=== PATIENT | male | born 1980 | race Two or more races ===

== ENCOUNTER 2021-03-09 11:26 | Emergency (ER) | payer SELFPAY ==
[~2021-03-09] VITALS: Ht 160 cm; Wt 61.6 kg
[2021-03-09 12:10] VITALS: BP 118/71
[2021-03-09] MEDS ORDERED: CYCL10TA2 PO (12:45)
[2021-03-09] MEDS ORDERED: IBUP-1007 PO (12:45)
[2021-03-09] MEDS ORDERED: TRAM-48 PO (12:45)
--- NOTE | 2021-03-09 12:47 | PHYS DOC ---
Past Medical History Past Surgical History: No Surgical History (DAVID RANDOLPH APRN) Smoking Status: Never Smoker Alcohol Use: None (DAVID RANDOLPH APRN) General Adult EDM: Chief Complaint: BACK PAIN OR INJURY HPI: HPI: Patient is a 40 male presents to the emergency department reporting ongoing back discomfort from a fall off a roof from November [id number]. Patient reports he was seen at [facility], was given pain medications and follow-up for outpatient care, patient reports he is out of pain medications and his follow-up appointments are too far for him to drive. Patient denies numbness or tingling to his extremities. Patient denies any loss of bowel or bladder, denies shortness of breath cough chest pain or congestion. Denies fever or chills. Denies receiving the COVID-19 vaccination. Reports his last tetanus immunization was greater than 10 years ago. Patient reports he took a Tylenol tablet yesterday for pain, reports his pain at a 2 out of 10 currently, reports it as high as a 4 out of 10. Patient states he would like to have a closer place to see a physician and to have a prescription for ongoing pain medications. Patient denies any other other physical concerns or physical complaints. Patient reports he is currently not working. (DAVID RANDOLPH APRN) Review of Systems: Review of Systems: 14 body systems of review of systems have been reviewed. See HPI for pertinent positives and negative responses, otherwise all other systems are negative, nonpertinent or noncontributory. Constitutional: Negative except as outlined in HPI above. Skin: Negative except as outlined in HPI above. Eyes: Negative except as outlined in HPI above. HENT: Negative except as outlined in HPI above. Respiratory: Negative except as outlined in HPI above. Cardiovascular: Negative except as outlined in HPI above. GI: Negative except as outlined in HPI above. : Negative except as outlined in HPI above. Musculoskeletal: Negative except as outlined in HPI above. Integument: Negative except as outlined in HPI above. Neurologic: Negative except as outlined in HPI above. Endocrine: Negative except as outlined in HPI above. Lymphatic: Negative except as outlined in HPI above. Psychiatric: Negative except as outlined in HPI above. (DAVID RANDOLPH APRN) Heart Score: C/O Chest Pain: No Risk Factors: Risk Factors: DM, Current or recent (<one month) smoker, HTN, HLP, family history of CAD, obesity. Risk Scores: Score 0 - 3: 2.5% MACE over next 6 weeks - Discharge Home Score 4 - 6: 20.3% MACE over next 6 weeks - Admit for Clinical Observation Score 7 - 10: 72.7% MACE over next 6 weeks - Early Invasive Strategies (DAVID RANDOLPH APRN) Allergies: Allergies: Allergies Coded Allergies Type Severity Reaction Last Updated Verified No Known Drug Allergies 03/09/21 No (DAVID RANDOLPH APRN) Physical Exam: PE: Constitutional: Well developed, well nourished, no acute distress, non-toxic appearance. 40-year-old male in no apparent distress. HENT: Normocephalic, atraumatic. Eyes: Conjunctiva normal, no discharge. Neck: Normal range of motion, no stridor. Cardiovascular: No cyanosis appreciated, distal cap refill less than 2 seconds. Lungs & Thorax: Patient is in no respiratory distress, no audible adventitious lung sounds appreciated. Abdomen: Nontender, no abnormalities noted. Skin: Warm, dry, no erythema, no rash. Back: No deformities appreciated, no crepitus appreciated, no bruising or skin discoloration of the back appreciated, pain to palpation along thoracic spine musculoskeletal structures. Full AROM/PROM of vertebral spinal column. Extremities: No tenderness, no cyanosis, no clubbing, ROM intact, no edema. [] Neurologic: Alert and oriented X 3, normal motor function, normal sensory function, no focal deficits noted. Psychologic: Affect normal, judgement normal, mood normal. (DAVID RANDOLPH APRN) Current Patient Data: Vital Signs: Vital Signs Date Time Temp Pulse Resp B/P (MAP) Pulse Ox O2 Delivery O2 Flow Rate FiO2 03/09/21 12:10 98.6 54 16 118/71 99 98.6 (DAVID RANDOLPH APRN) EKG: EKG: [] (DAVID RANDOLPH APRN) Radiology/Procedures: Radiology/Procedures: [] (DAVID RANDOLPH APRN) Course & Med Decision Making: Course & Med Decision Making Pertinent Labs and Imaging studies reviewed. (See chart for details) 40-year-old male, vital signs reviewed, presents to the emergency department complaining of ongoing back pain from an original injury around November 11, 2020. Physical examination consistent with musculoskeletal back pain. No imaging indicated. Will give pain medication in the ED today, will bring tetanus immunization up-to-date with Adacel Tdap, will provide follow-up care for ongoing pain management. Patient is amenable to ED planning and ED discharge planning. Patient is Slovak-speaking, used house foreign language interpreter service for HPI, physical examination, and discharge planning with patient, passenger relations representative #[id number]. Discussed with the patient all findings and diagnostic testing as well as the need to follow-up with their primary care provider for further evaluation and treatment or return to the ED if any new or worsening symptoms. Strict return precautions were also discussed at length, the patient voiced understanding and agreement with the discharge planning. The patient was nontoxic in appearance, in no apparent distress, and hemodynamically stable at the time of disposition. (DAVID RANDOLPH APRN) Course & Med Decision Making I have reviewed and agree with all pertinent clinical information above inc luding history, exam, and recommendations. Ivan Saleh DO (IVAN SALEH DO) Vijay Disclaimer: Vijay Disclaimer: This electronic medical record was generated, in whole or in part, using a voice recognition dictation system. (DAVID RANDOLPH APRN) Departure Departure Impression: Primary Impression: Back pain Qualified Codes: M54.6 - Pain in thoracic spine; G89.29 - Other chronic pain Additional Impression: Need for DTaP vaccination Disposition: HOME / SELF CARE / HOMELESS Condition: GOOD Referrals: NO PCP (PCP) Patient Instructions: Back Pain, Adult Additional Instructions: You were seen today in the emergency department for ongoing mid back pain since your original injury in October of this year. You were treated today with pain medication in the ED. You are also given a tetanus immunization as you indicated your last tetanus immunization was greater than 5 years ago. We are providing you with area clinics and primary care providers that you may choose to see for ongoing pain management of this back pain. Please follow-up this week with a primary care physician to establish care and ongoing pain management. I am prescribing you pain medication please take as directed. Thank you for visiting our Emergency Department. It was a pleasure taking care of you today in the emergency department and we appreciate you trusting us with your care. If any additional problems come up don't hesitate to return to visit us. Please follow up with your primary care provider so they can plan additional care if needed and know about the problem that you had. If symptoms worsen come back to the Emergency Department. Any concerning symptoms that start such as chest pain, shortness of air, weakness or numbness on one side of the body, running high fevers or any other concerning symptoms return to the ER. Hoy lo atendieron en el departamento de emergencias por un dolor lumbar continuo desde calderón lesin original en tyrel de zack ao. Hoy te trataron con analgsicos en el servicio de urgencias. Tambin se le administra joanne vacuna contra el ttanos, ya que indic que calderón ltima vacuna contra el ttanos fue mayor que hace 5 aos. Le proporcionamos clnicas del aiden y proveedores de atencin primaria que puede elegir buzz para el manejo continuo del dolor de zack dolor de espalda. Paul un seguimiento esta semana con un mdico de atencin primaria para establecer la atencin y el manejo continuo del dolor. Le estoy recetando analgsicos, por favor tmelos segn las indicaciones. John por visitar nuestro Departamento de Emergencias. Fue un placer atenderlo hoy en el departamento de emergencias y le agradecemos que nos haya confiado calderón atencin. Si surge algn problema adicional, no dude en volver a visitarnos. Paul un seguimiento con calderón proveedor de atencin primaria para que puedan planificar atencin adicional si es necesario y conocer el problema que tuvo. Si los s ntomas empeoran, regrese al Departamento de Emergencias. Cualquier sntoma preocupante que comience, behzad dolor en el pecho, falta de aire, debilidad o entumecimiento en un lado del cuerpo, fiebre uzma o cualquier otro sntoma preocupante, regresa a la soumya de emergencias. Scripts Cyclobenzaprine Hcl (CYCLOBENZAPRINE HCL) 10 Mg Tablet 1 TAB PO TID for muscle cramping, #15 TAB 0 Refills Prov: DAVID RANDOLPH [employer] 03/09/21 Tramadol Hcl (ULTRAM) 50 Mg Tablet 1 TAB PO PRN TID PRN for SEVERE PAIN 7-10 MDD 3 Tablet(s) for 5 Days, #15 TAB 0 Refills Prov: DAVID RANDOLPH [employer] 03/09/21 Ibuprofen (IBUPROFEN) 600 Mg Tablet 600 MG PO PRN Q6HRS PRN for INFLAMMATION, #30 TAB 0 Refills Prov: DAVID RANDOLPH [employer] 03/09/21 DAVID RANDOLPH [employer] Mar 09, 2021 12:47 IVAN SALEH DO Mar 09, 2021 15:19
[2021-03-09] MEDS ORDERED: KETOROLAC 60 MG/2 ML VIAL. IM ONE (13:00)
[2021-03-09] MEDS ORDERED: HYDROcodone/APAP 5/325MG 1 TAB TABLET PO ONE (13:00)
[2021-03-09] MEDS ORDERED: DIPH,PERTUSS(ACELL),TET VAC/PF 0.5 ML SYRINGE. VAX IM ONE (13:00)
== END 2021-03-09 13:20 | disposition home or self-care (01) ==
LOC: ER 11:26
DX: G89.29 Other chronic pain (principal); M54.6 Pain in thoracic spine
CPT/HCPCS: 90471; 90715; 96372; 99284; J1885